=== PATIENT | female | born 1990 | race Caucasian/White ===

== ENCOUNTER 2021-02-21 13:18 | Emergency (ER) | payer OTHER ==
[~2021-02-21] VITALS: Ht 175.3 cm; Wt 78.9 kg
== END 2021-02-21 14:27 | disposition home or self-care (01) ==
LOC: ER 13:18
DX: R39.9 Unspecified symptoms and signs involving the genitourinary system (principal)
CPT/HCPCS: 84702; 86900; 86901; 99283